=== PATIENT | male | born 1985 | race Caucasian/White ===

== ENCOUNTER 2018-10-26 17:49 | Emergency (ER) | payer MEDICAID ==
[~2018-10-26] VITALS: Ht 167.6 cm; Wt 84.8 kg
[2018-10-26 17:57] VITALS: Ht 167.6 cm; Wt 84.8 kg
[2018-10-26] MEDS ORDERED: NPH10OT RIGHT EAR (20:37)
[2018-10-26] MEDS ORDERED: CLOT30CR24 TOP (20:37)
--- NOTE | 2018-10-26 20:44 | ERD ---
ER Documentation Chief Complaint Chief Complaint Complains of right ear pain x 2 days HPI 32-year-old male is here for 2 complaints. He is first complaining of pain in his right ear and states there was some bleeding from his right ear. He does admit to cleaning his ear with a Q-tip. No fever. No pus coming from his ear. No cough. No runny nose or congestion. Without any medications for his symptoms. He is also complaining of rash to his penis that has had for over 2 months. No penile discharge. No flank pain. No dysuria hematuria frequency. Has not tried any creams or treatment for his rash. ROS All systems reviewed and are negative except as per history of present illness. Medications Home Meds Active Scripts Neomycin/Polymyxin/Hydrocort* (Cortisporin* Otic) 10 Ml Susp, 4 DROP RIGHT EAR QID for 7 Days, EA Prov:JENNIFER UGARTE PA-C 10/26/18 Clotrimazole* (Clotrimazole* AF) 1% - 30 Gm Cream.gm., 1 APPLIC TOP BID for 7 Days, TUB Prov:JENNIFER UGARTE PA-C 10/26/18 PMhx/Soc Medical and Surgical Hx: pt denies Medical Hx, pt denies Surgical Hx Hx Alcohol Use: No Hx Substance Use: No Hx Tobacco Use: Yes Smoking Status: Current some day smoker FmHx Family History: No diabetes Physical Exam Vitals Vital Signs Date Temp Pulse Resp B/P (MAP) Pulse Ox O2 O2 Flow FiO2 Time Delivery Rate 10/26/18 98.2 67 20 135/72 97 17:57 (93) Physical Exam INITIAL VITAL SIGNS: Reviewed by me GENERAL: Awake, alert and oriented x 4, well appearing, nontoxic, speaking in full sentences. No acute distress HEAD: Atraumatic NECK: Supple. No masses. Full range of motion. No meningismus. No midline tenderness. EYES: EOMI. PERRL. EAR: No tenderness over the mastoids bilaterally. No exudates in the canals. TMs nonerythematous. Right ear canal has some bleeding and a small abrasion NOSE: Normal nose. THROAT: No tonilar erythema or edema. No exudates. Uvula midline. No kissing tonsils. RESPIRATORY: Clear to auscultation bilaterally. Symmetric chest wall rise. No wheezing or rales. No accessory muscle use. CV: Regular rate and rhythm. No murmurs, rubs, or gallops. ABDOMEN: Soft, non-distended. Nontender. Negative [place]. Negative McBurneys point tenderness. No CVA tenderness bilaterally. No guarding. No rebound. : No testicular tenderness, no inguinal lymphadenopathy, glans of penis is erythematous and thickened skin and scaly Procedures/MDM Patients is alert, oriented, well appearing, and in no distress with normal vital signs. There is no fever, tachycardia, or tachypnea. Patient has what is likely balanitis. He is given clotrimazole cream. Does not appear to be sexually transmitted infection based on exam. He also has right ear pain secondary to cleaning his ear with a Q-tip. No evidence of infection or perforated tympanic membrane. He was given Cortisporin eardrops. Patient counseled regarding my diagnostic impression and care plan. Prior to discharge all questions answered. Pt agrees with treatment plan and understands strict return precautions. Pt is instructed to follow up with primary care provider within 24-48 hours. Precautionary instructions provided including instructions to return to the ER if not improving or for any worsening or changing symptoms or concerns. Departure Diagnosis: Primary Impression: Balanitis Additional Impression: Otalgia Condition: Stable Patient Instructions: Earache W/O Infection (Adult) Additional Instructions: Call your primary care doctor TOMORROW for an appointment during the next 1-2 days.See the doctor sooner or return here if your condition worsens before your appointment time. JENNIFER UGARTE PA-C Oct 26, 2018 20:44
[2018-10-26 20:55] VITALS: BP 138/78; PULSE 55; RESP 18
== END 2018-10-26 20:56 | disposition home or self-care (01) ==
LOC: FTE 17:49
DX: N48.1 Balanitis (principal); F17.210 Nicotine dependence, cigarettes, uncomplicated
CPT/HCPCS: 99283

== ENCOUNTER 2018-12-12 15:23 | Emergency (ER) | payer MEDICAID ==
[~2018-12-12] VITALS: Wt 86.3 kg
[~2018-12-12 15:23] MED LIST: CLOT30CR24 TOP; NPH10OT RIGHT EAR
[2018-12-12 15:27] VITALS: BP 177/81; PULSE 76; RESP 16
[2018-12-12] MEDS ORDERED: CIPR7.5D RIGHT EAR (16:47)
[2018-12-12] MEDS ORDERED: MUPI22OI2 TOP (16:47)
[2018-12-12] MEDS ORDERED: CARB-155 OTIC (16:54)
--- NOTE | 2018-12-12 16:58 | ERD ---
ER Documentation Chief Complaint Chief Complaint DRY SKIN ON GENITAL AREA FOR SEVERAL MONTHS NOW, ALSO THROAT PAIN HPI Patient is a 33-year-old male who presents with complaint of rash on his penis and pain in right ear. Patient was seen in this ER on October 26 and prescribed Clotrimazole for balanitis and polymyxin B for otitis externa. Patient states he used entire tube of Clotrimazole over the last 2 months and his this is still dry with open lesions. States he used all of the eardrops and continues to have pain in left ear. Denies any medical history. Denies fevers. Denies any penile discharge. Denies dysuria, no fevers, pain, no pelvic pain. ROS All systems reviewed and are negative except as per history of present illness. Medications Home Meds Active Scripts Carbamide Peroxide (EAR DROPS) 15 Ml Drops, 15 ML OTIC BID for 10 Days, #1 BOTTLE Prov:CAITLYN FAIRBANKS NP 12/12/18 Mupirocin* (Bactroban*) 2% -22 Gram Oint...g., 1 APPLIC TOP BID for 14 Days, #15 GM Prov:CAITLYN FAIRBANKS NP 12/12/18 Neomycin/Polymyxin/Hydrocort* (Cortisporin* Otic) 10 Ml Susp, 4 DROP RIGHT EAR QID for 7 Days, EA Prov:JENNIFER UGARTE PA-C 10/26/18 Clotrimazole* (Clotrimazole* AF) 1% - 30 Gm Cream.gm., 1 APPLIC TOP BID for 7 Days, TUB Prov:JENNIFER UGARTE PA-C 10/26/18 Allergies Allergies: Coded Allergies: No Known Allergy (Unverified , 12/12/18) PMhx/Soc Medical and Surgical Hx: pt denies Medical Hx, pt denies Surgical Hx Hx Alcohol Use: No Hx Substance Use: No Hx Tobacco Use: Yes Smoking Status: Current every day smoker FmHx Family History: No diabetes, No coronary disease, No other Physical Exam Vitals Vital Signs Date Temp Pulse Resp B/P (MAP) Pulse Ox O2 O2 Flow FiO2 Time Delivery Rate 12/12/18 98.8 76 16 177/81 98 15:27 (113) Physical Exam Const: No acute distress Head: Atraumatic Eyes: Normal Conjunctiva, PERRL, sclera white ENT: Left TM clear, Right TM dry and peeling, Normal External Ears, Nose and Mouth. Pharynx pink without lesions or exudate Neck: Full range of motion. No meningismus. Resp: Clear to auscultation bilaterally Cardio: Regular rate and rhythm, no murmurs Abd: Soft, non tender, non distended. Normal bowel sounds Skin: No petechiae or rashes Back: No midline or flank tenderness Ext: No cyanosis, or edema Neur: Awake and alert Psych: Normal Mood and Affect Genitalia: Macular red open lesions at base of head of penis, scant clear drainage, pt states he unroofed crust on lesions prior to visit, no surrounding redness or swelling, Procedures/MDM This 33-year-old male presents with lesions to penis and pain in right ear. Low likelihood that this is a continuation of balanitis and is Sona infection as penis is not red, itching, swelling, no satellite lesions on scrotum, or groin. Low likelihood of this being a STI as patient denies being sexually active and denies penile discharge. Right ear with dry exudate over TM, no redness, swelling, exudate in external canal. Low likelihood that this is a cholesteatoma as there does not appear to be a distinct lesion behind the eardrum or protruding from the eardrum. ED COURSE: The patient was stable throughout ED course. Patient will be instructed home with instructions to follow-up with primary care provider. Patient provided with a list of community clinics for follow-up. She instructed to return to emergency room if symptoms do not resolve, or if they change or worsen. Departure Diagnosis: Primary Impression: Otitis externa Additional Impressions: Staph skin infection Hypertension Condition: Stable Patient Instructions: External Ear Infection (Adult) Referrals: [facility] YOU HAVE RECEIVED A MEDICAL SCREENING EXAM AND THE RESULTS INDICATE THAT YOU DO NOT HAVE A CONDITION THAT REQUIRES URGENT TREATMENT IN THE EMERGENCY DEPARTMENT. FURTHER EVALUATION AND TREATMENT OF YOUR CONDITION CAN WAIT UNTIL YOU ARE SEEN IN YOUR DOCTORS OFFICE WITHIN THE NEXT 1-2 DAYS. IT IS YOUR RESPONSIBILITY TO MAKE AN APPOINTMENT FOR FOLOW-UP CARE. IF YOU HAVE A PRIMARY DOCTOR --you should call your primary doctor and schedule an appointment IF YOU DO NOT HAVE A PRIMARY DOCTOR YOU CAN CALL OUR PHYSICIAN REFERRAL HOTLINE AT IF YOU CAN NOT AFFORD TO SEE A PHYSICIAN YOU CAN CHOSE FROM THE FOLLOWING [facility] [address] [facility] [address] [facility] [address] [facility] [address] [facility]. [facility] [address] [facility]. [facility] [address] Additional Instructions: Call your primary care doctor TOMORROW for an appointment during the next 2-3 days.See the doctor sooner or return here if your condition worsens before your appointment time. CAITLYN FAIRBANKS NP Dec 12, 2018 16:58
== END 2018-12-12 17:00 | disposition home or self-care (01) ==
LOC: FTE 15:23
DX: H60.91 Unspecified otitis externa, right ear (principal); L08.9 Local infection of the skin and subcutaneous tissue, unspecified; I10 Essential (primary) hypertension; F17.210 Nicotine dependence, cigarettes, uncomplicated
CPT/HCPCS: 99283